=== PATIENT | female | born 1960 | race African-American/Black ===

== ENCOUNTER 2024-04-14 16:11 | Emergency (ER) | payer MEDICAID ==
[~2024-04-14] VITALS: Ht 170.2 cm; Wt 100.0 kg
[2024-04-14 16:25] VITALS: O2SAT 98
[2024-04-14 16:26] VITALS: BP 165/83; PULSE 98; RESP 18; TEMP 99.8; O2SAT 95
[2024-04-14 16:58] LABS: EOSINOPHILS % 0.9 % (0.0-5.0); HEMATOCRIT. 42.2 % (36.0-48.0); HEMOGLOBIN. 14.2 g/dL (12.0-16.0); LYMPHOCYTES % 7.6 % (20.0-50.0); MEAN CORPUSCULAR HEMOGLOBIN 29.5 pg (28.0-32.0); MEAN CORPUSCULAR HGB CONC 33.7 g/dL (31.0-37.0); MEAN CORPUSCULAR VOLUME 87.5 fL (81.0-99.0); MONOCYTES % 8.6 % (2.0-8.0); NEUTROPHILS % 81.9 % (40.0-76.0); PLATELET 217 x1000/uL (130-400); RED BLOOD CELL COUNT 4.82 mill/uL (4.2-5.4); RED CELL DISTRIBUTION WIDTH 13.1 % (11.6-14.6); WHITE BLOOD COUNT 8.2 x1000/uL (4.5-11.0)
[2024-04-14 17:10] LABS: CHLORIDE 99 mEq/L (98-107); POTASSIUM 3.1 mEq/L (3.5-5.1); SODIUM 137 mEq/L (136-145)
[2024-04-14 17:11] LABS: CALCIUM 10.1 mg/dL (8.7-10.4); CARBON DIOXIDE 27 mEq/L (21-32)
[2024-04-14 17:16] LABS: CREATININE 1.1 mg/dL (0.6-1.0); GLUCOSE 353 mg/dL (70-105); UREA NITROGEN BLOOD 9 mg/dL (9-23)
[2024-04-14 17:17] LABS: TROPONIN I HIGH SENSITIVITY 20 ng/L (3.0-34)
== END 2024-04-14 17:40 | disposition left against medical advice (07) ==
LOC: ER 16:11
DX: R53.1 Weakness (principal); Z53.21 Procedure and treatment not carried out due to patient leaving prior to being seen by health care provider
CPT/HCPCS: 36415; 80048; 84484; 85025; 93005